=== PATIENT | male | born 1995 | race Caucasian/White ===

== ENCOUNTER 2019-10-16 08:06 | Day surgery (SDC) | payer OTHER ==
[~2019-10-16] VITALS: Ht 157.5 cm; Wt 83.5 kg
[2019-10-16] MEDS ORDERED: fentaNYL 0.05 MG/ML VIAL ONE (08:51)
[2019-10-16] MEDS ORDERED: LIDOCAINE 2% 100 MG/5 ML UJET TP ONE (08:52)
[2019-10-16] MEDS ORDERED: MIDAZOLAM 2 MG/2 ML VIAL ONE (08:52)
[2019-10-16] MEDS ORDERED: LIDOCAINE VISCOUS 2% 20 ML UDC ONE (08:54)
[2019-10-16] MEDS ORDERED: diphenhydrAMINE 50 MG/ML VIAL ONE (10:37)
[2019-10-16] MEDS ORDERED: fentaNYL 0.05 MG/ML VIAL IVP ONE (10:45)
[2019-10-16] MEDS ORDERED: diphenhydrAMINE 50 MG/ML VIAL IVP ONE (10:45)
[2019-10-16] MEDS ORDERED: MIDAZOLAM 2 MG/2 ML VIAL IVP ONE (10:45)
== END 2019-10-16 11:20 | disposition home or self-care (01) ==
LOC: MDS 08:06 → MMU 08:10 → MDS 11:20
PROVIDERS: ATTEND Internal Medicine Gastroenterology
DX: K62.5 Hemorrhage of anus and rectum (principal); D12.4 Benign neoplasm of descending colon; R11.2 Nausea with vomiting, unspecified; F17.210 Nicotine dependence, cigarettes, uncomplicated
CPT/HCPCS: 43235; 45380; 45385; 88305; J1200; J2250; J3010